=== PATIENT | female | born 1975 | race Caucasian/White ===

== ENCOUNTER 2019-02-12 16:31 | Emergency (ER) | payer BC ==
[~2019-02-12] VITALS: Ht 172.7 cm; Wt 81.6 kg
--- NOTE | 2019-02-12 17:41 | NUR ---
BIB [facility] 89 FROM WORK, ANXIETY PER REPORT BUT C/O CHEST PAIN UPON ARRIVAL. PATIENT A/OX3, BREATHING EVEN AND UNLABORED, NO SOB NOTED. ATTACHED ON THE IT ASSOCIATE.
--- NOTE | 2019-02-12 17:46 | NUR ---
PATIENT ANXIOUS, INFORMED DR. CHOWDHURY.
[2019-02-12 18:03] LABS: BASOPHILS % (AUTO) 0.3 % (0.0-2.0); EOSINOPHILS % (AUTO) 0.2 % (0.0-6.0); HEMATOCRIT 35 % (33-45); HEMOGLOBIN 11.1 g/dL (11.5-14.8); LYMPHOCYTES # (AUTO) 1.5 /CMM (0.8-4.8); MEAN CORPUSCULAR HGB CONC 32 g/dl (31.0-36.0); MEAN CORPUSCULAR VOLUME 69 fL (82-100); MONOCYTES # (AUTO) 0.6 /CMM (0.1-1.30); MONOCYTES % (AUTO) 5.7 % (2.0-12.0); NEUTROPHILS # (AUTO) 7.5 /CMM (1.8-8.9); NEUTROPHILS % (AUTO) 77.8 % (43.0-81.0); PLATELET COUNT (AUTO) 246 /CMM (150-450); RED BLOOD CELL COUNT(AUTO) 5.03 MIL/uL (4.0-5.2); WHITE BLOOD COUNT (AUTO) 9.7 K/uL (4.3-11.0)
[2019-02-12 18:14] LABS: CALCIUM, SERUM 9.2 mg/dL (8.5-10.1); CARBON DIOXIDE 23 mmol/L (21-32); CHLORIDE 104 mmol/L (98-107); CREATININE 0.7 mg/dL (0.6-1.3); GLUCOSE 93 mg/dL (74-106); SODIUM SERUM 138 mmol/L (136-145); UREA NITROGEN, BLOOD 10 mg/dL (7-18)
[2019-02-12 18:25] LABS: ALANINE AMINOTRANSFERASE 22 U/L (12-78); ALBUMIN 3.8 g/dL (3.4-5.0); ALKALINE PHOSPHATASE 53 U/L (46-116); ASPARTATE AMINOTRANSFERASE 14 U/L (15-37); BILIRUBIN,TOTAL 0.3 mg/dL (0.2-1.0); TOTAL PROTEIN, SERUM 7.7 g/dL (6.4-8.2)
--- NOTE | 2019-02-12 18:47 | NUR ---
Patient stated she feels better, family atb edside. Patient discharged to home in stable condition. Written and verbal after care instructions given. Patient verbalizes understanding of instruction.
[2019-02-12 18:49] VITALS: BP 131/88
[2019-02-12 19:05] LABS: LYMPHOCYTES % (MANUAL) 18 % (16-48); MONOCYTES % (MANUAL) 7 % (0-11.0); NEUTROPHILS % (MANUAL) 75 (42-76)
== END 2019-02-12 18:49 | disposition home or self-care (01) ==
LOC: ER 16:31
DX: R07.89 Other chest pain (principal)
CPT/HCPCS: 36415; 71045-TC; 80048-TC; 80076-TC; 84484-TC; 85025-TC

== ENCOUNTER 2021-04-09 08:51 | Emergency (ER) | payer BC ==
[~2021-04-09] VITALS: Ht 170.2 cm; Wt 90.7 kg
[2021-04-09] MEDS ORDERED: diphenhydrAMINE HCL 50 MG/ML VIAL ONE (09:16)
[2021-04-09] MEDS ORDERED: FAMOTIDINE/PF INJ 20 MG/2 ML VIAL IV ONE ×2 (09:16→09:30)
[2021-04-09] MEDS ORDERED: IV NS 0.9% 1,000 ML IV ONE (09:30)
[2021-04-09] MEDS ORDERED: diphenhydrAMINE HCL 50 MG/ML VIAL IV ONE (09:30)
--- NOTE | 2021-04-09 10:25 | NUR ---
Reclining in bed NAD. Updated with plan of care states "feels better"
[2021-04-09] MEDS ORDERED: DIPH25CA83 PO (11:07)
[2021-04-09] MEDS ORDERED: FAMO-131 PO (11:07)
[2021-04-09] MEDS ORDERED: PRED20TA PO (11:07)
[2021-04-09] MEDS ORDERED: EPIN0.3P3 IJ (11:07)
[2021-04-09 11:21] VITALS: BP 120/69
--- NOTE | 2021-04-09 11:22 | NUR ---
No obvious distress. Appropriate/Responsive. Patient discharged to home in stable condition. Written and verbal after care instructions given. Patient verbalizes understanding of instruction.
== END 2021-04-09 11:22 | disposition home or self-care (01) ==
LOC: ER 08:54
DX: L50.0 Allergic urticaria (principal)
CPT/HCPCS: 96361; 96374; 96375; 99284; J1200; J3490; J7030